=== PATIENT | female | born 1945 | race Caucasian/White ===

== ENCOUNTER 2025-09-04 09:56 | Emergency (ER) | payer OTHER, SELFPAY ==
--- NOTE | ~2025-09-04 | CT_ITS ---
CT HEAD NON-CONTRAST Clinical History: fall, [place] Comparison: None Technique: Unenhanced axial images skull base to vertex Coronal, sagittal reformats CT images acquired with automatic exposure control for dose reduction DLP: 605 mGy-cm Findings: Mild white matter changes, typically chronic microvascular ischemic disease. Sulci, ventricles: Unremarkable. No intracerebral hemorrhage. No evidence acute territorial infarct. No mass effect, midline shift. Bony calvarium intact. Visualized paranasal sinuses: Clear. Mastoid air cells: Clear. IMPRESSION: 1. No acute intracranial findings. Reviewed, dictated and finalized at location R. ING AND MOVING ESTIMATOR
--- NOTE | ~2025-09-04 | CT_ITS ---
EXAMINATION: CT facial & cervical spine wo DATE: 09/04/2025 11:33 INDICATION: Head injury. TECHNIQUE: Computed tomography (CT) of the maxillofacial region and cervical spine was performed without intravenous contrast. Automated exposure control and iterative reconstruction technique were employed. The dose-length product was 605.33 mGy-cm. COMPARISON: None FINDINGS: MAXILLOFACIAL CT: There are fractures of the nasal bones and nasal septum. There is leftward deviation of the nasal septum. There is mild mucosal thickening in the paranasal sinuses. CERVICAL SPINE CT: There is scarring at the lung apices. There is 2 mm anterolisthesis of C7 on T1. There is 6 degrees levocurvature of cervical spine. Vertebral body heights are normal. There is moderately decreased disc height at C4-C5 and severely decreased disc height at C5-C6 and C6-C7. There is multilevel severe facet joint and uncovertebral joint osteoarthritis. There is mild neural foraminal stenosis at multiple levels on either side. There is mild central canal stenosis at C5-C6 and C6-C7. IMPRESSION: 1. Fractures of the nasal bones and nasal septum. 2. Severe cervical spondylosis. Reviewed, dictated and finalized at location E. E SALES MANAGER
[2025-09-04 09:58] VITALS: BP 160/57; PULSE 70; RESP 20; TEMP 36.3; O2SAT 99
[2025-09-04 11:08] VITALS: BP 153/71; PULSE 70; RESP 20; O2SAT 100
--- NOTE | 2025-09-04 12:04 | ED.FALL ---
HPI - Fall General Chief Complaint: Fall Stated Complaint: FALL Time Seen by Provider: 09/04/25 10:55 Source: patient Mode of arrival: ambulatory Limitations: no limitations History of Present Illness HPI Narrative: Patient is an 80 y/o female who presents to the ED with c/o fall. Patient reports she was walking through her house and tripped and fell. Hit her head on the ground. Denied LOC. Was wearing her eyeglasses and sustained abrasion to the bridge of her nose. Did have a nosebleed afterwards which has since resolved. Denies dizziness, lightheadedness, vision changes, nausea, neck or back pain. Denies numbness. She is not on any anticoagulation. Related Data Allergies Allergy/AdvReac Type Severity Reaction Status Date / Time No Known Allergies Allergy Verified 09/04/25 11:10 Review of Systems Review of Systems: All systems reviewed & are unremarkable except as noted in HPI. All systems reviewed & are unremarkable except as noted in HPI and below Exam Narrative: GENERAL: Elderly, well-nourished, non-toxic, in no acute distress. HEAD: Normocephalic, atraumatic. EYES: PERRL/EOMI, conjunctiva clear ENT: Abrasion over bridge of nose. Some bruising to nares duane. Dried blood in nares. No active epistaxis. No septal hematoma. RESPIRATORY: Airway patent, respirations nonlabored. Clear to auscultation bilaterally, no rales, rhonchi, wheezing. CARDIOVASCULAR: Regular rate and rhythm without murmurs, rubs, or gallops. ABDOMINAL: Soft, nontender, nondistended. Normoactive BS. MUSCULOSKELETAL: Moves all extremities. No gross deformities. No significant C/T/L spinal tenderness. SKIN: Warm, dry, normal color. NEURO: A&O X3. Speech clear. Cranial nerves II-XII grossly intact. Steady gait. No ataxic movements. No focal deficits. PSYCHIATRIC: Appropriate mood and affect. Normal interaction. Course Vital Signs Vital signs: Vital Signs Temperature 97.3 F L 09/04/25 09:58 Pulse Rate 70 09/04/25 09:58 Respiratory Rate 20 09/04/25 09:58 Blood Pressure 160/57 H 09/04/25 09:58 Pulse Oximetry 99 09/04/25 09:58 Oxygen Delivery Room Air 09/04/25 09:58 Temperature 97.3 F L 12/29/25 09:58 Pulse Rate 73 09/04/25 12:41 Respiratory Rate 18 09/04/25 12:41 Blood Pressure 159/83 H 09/04/25 12:41 Pulse Oximetry 100 09/04/25 12:41 Oxygen Delivery Room Air 09/04/25 11:08 [facility] Narrative Medical decision making narrative: Patient presented to ED status post ground level mechanical fall with facial injury. Vital signs stable upon arrival. Patient in no acute distress. Neurologically intact. No focal deficits. She is not on any anticoagulation. No septal hematoma. Small abrasion over bridge of nose. Does not require repair. CT brain negative CT facial bones with evidence of nasal bone fracture and fracture of nasal septum. No cervical fracture Discussed imaging findings with patient and need for follow-up with ENT. Will refer to ENT here. Advised against blowing nose, recommended frequent icing to face. Offered pain medication for home, however patient politely declined. Advised to take Tylenol. Otherwise safe for discharge home. Given strict return precautions. Patient and family are in agreement with plan. Family otherwise states patient has been at her baseline. Discharged in stable condition. Differential Diagnosis Differential Diagnosis: Concussion, closed head injury, intracranial bleeding, neck fracture, facial bone fracture Medical Records I have reviewed the following patient records and this information was taken into consideration when formulating the assessment and plan.: previous labs, previous ER visits, previous hospitalizations and previous clinic visits Imaging Data Attestation: I personally reviewed and interpreted this imaging study as follows: Radiologist's impression: ITS Impressions Head CT 09/04/25 11:39 IMPRESSION: 1. No acute intracranial findings. Head/Cervical Spine/Facial Bones CT 09/04/25 11:42 IMPRESSION: 1. Fractures of the nasal bones and nasal septum. 2. Severe cervical spondylosis. Discharge Plan Discharge Clinical Impression: Fall from ground level Closed head injury Qualifiers: Encounter type: initial encounter Qualified Code(s): S09.90XA - Unspecified injury of head, initial encounter Fracture of nasal bones Qualifiers: Encounter type: initial encounter Fracture type: closed Qualified Code(s): S02.2XXA - Fracture of nasal bones, initial encounter for closed fracture Patient Disposition: Home Condition: Stable Instructions: Antibiotic Form, Nasal Fracture (ED), Head Injury (ED) Additional Instructions: Your imaging showed evidence of fracture to your nasal bones. Avoid blowing your nose over the next several days. You will need to follow-up with ENT for further evaluation. Call office to make appointment. Recommend frequent icing to face and nose. Use Tylenol as needed for pain. Return to the ED if you experience recurrent fall or injury, severe nosebleeds, feeling dizzy or lightheaded, passing out, unable to keep down food or drink, or any other symptoms of concern. Patient Language: Moldovan Follow-up/Referrals: Pierre Bradford MD [Physician, Ear, Nose, Throat] Referral Note: ENT PHYSICIAN NOT ON STAFF,NONSTAFF [Primary Care Provider] Time of Disposition: 12:08
--- OUTSIDE RECORDS SUMMARY | 2025-09-04 12:20 | XMS_ITS | Encounter Summary ---
Author Organization [facility] Address [address] [place] [address] Care Team Providers Care Matzo Forming Machine Operator Name Role Phone Akiko Mendoza MD Primary Care Provider [phone] Reason for Visit * Reason Onset Date Comments Results 06/18/2020 Encounter Details Date Type Department Care Team (Late st Contact Info) Description 06/18/2020 Transitional Care Telephone Call [facility] [place] [address] [address] [facility] [address] [place] [address] Melony Shepherd MD [address] [place] [address] Social History Tobacco Use Types Packs/Day Years Used Date Smoking Tobacco: Never Smokeless Tobacco: Never Alcohol Use Standard Drinks/Week Comments Yes 0 (1 standard drink = 0.6 oz pur e alcohol) 1 per week PHQ-2 Answer Date Recorded PHQ-2 Total Score 0 04/19/2020 Comments No Sex and Gender Information Value Date Recorded Sex Assigned at Female 06/22/2023 9:34 AM EDT Legal Sex Female 1:01 PM EDT Gender Identity Female 06/22/2023 9:34 AM EDT Sexual Orientation Straight 06/22/2023 9: 34 AM EDT documented as of this encounter Plan of Treatment Not on file documented as of this encounter Visit Diagnoses Not on filedocumented in this encounter Care Teams Matzo Forming Machine Operator Relationship Specialty Start Date End Date Akiko Mendoza MD [address] [place] [address] [place], [place] [id number] PCP - General Internal Medicine 06/24/18 documented as of this encounter
--- OUTSIDE RECORDS SUMMARY | 2025-09-04 12:20 | XMS_ITS | Clinical Summary ---
Author Organization [employer] [facility] Address [address] [place] [address] Phone Care Team Providers Care Electromechanical Inspector Name Role Phone Akiko Mendoza MD Primary Care Provider [phone] Allergies Active Allergy Reactions Criticality Noted Date Comments Propofol Unknown 12/25/2021 Thiopental Unknown 01/14/2021 Medications DULoxetine (Cymbalta) [address] capsule Take 1 capsule (60 mg total) by mouth 1 (one) time each day. 1 Active potassium chloride (Klor-Con) 20 mEq ER tablet Take 1 tablet (20 mEq total) by mouth 1 (one) time each day. 1 Active magnesium gluconate (Magonate) 27.5 mg magne- sium (500 mg) tablet Take 1 tablet (27.5 mg total) by mouth 1 (one) time each day. Active docusate sodium (Colace) 100 mg capsule Take 1 capsule (100 mg total) by mouth 1 (one) time each day. Active cholecalcifero l (Vitamin D-3) 25 mcg (1,000 unit) capsule Take by mouth 1 (one) time each day. Active nadoloL (Corgard) 20 mg tablet TAKE ONE TABLET BY MOUTH TWO TIMES A WEEK 24 tablet 1 5 Active ezetimibe (Zetia) 10 mg tablet TAKE 1 TABLET BY MOUTH DAILY 90 tablet 5 Active olmesartan-hyd rochlorothiazi de (BENIcar HCT) 40-12.5 mg tablet TAKE 1 TABLET BY MOUTH EVERY DAY 90 tablet 5 Active olmesartan-hyd rochlorothiazi de (BENIcar HCT) 40-12.5 mg tablet TAKE 1 TABLET BY MOUTH 1 (ONE) TIME EACH DAY. 90 tablet 5 08/22/20 25 Discontinued Active Problems Problem Noted Date Diagnosed Date Abnormal EKG 05/23/2021 Anxiety and depression 05/23/2021 Shortness of breath 05/23/2021 Hyperlipidemia 01/14/2016 Fatigue 11/12/2015 COPD (chronic obstructive pulmonary disease) Hypertension 11/05/2015 Encounters Date Type Department Care Team Description 08/21/2025 Refill [facility] [address] [facility], [address] [address] Lang Odonnell MD Med Refill 07/21/2025 Refill [facility] [address] [facility], [address] [address] Lang Odonnell MD Med Refill 07/12/2025 Refill [facility] [address] [facility], [address] [phone] Lang Odonnell MD Med Refill from Last 3 Months Immunizations Immunization Administration Dates Next Due Influenza (IM) Preservative Free 05/30/2020 Moderna Covid-19, Mrna, Lnp- s, Pf, 100 Mcg/0.5 Ml 08/26/2021,01/17/2021,12/04/2020 Social History Tobacco Use Types Packs/Day Years Used Date Smoking Tobacco: Never Smokeless Tobacco: Never Tobacco Cessation:Counseling Given: Not Answered Alcohol Use Standard Drinks/Week Comments Yes 0 (1 standard drink = 0.6 oz pur e alcohol) occasionally E-cigarette/Vaping Answer Date Recorded Smoking Tobacco Use Never 01/16/2025 Smokeless Tobacco Use Never 01/16/2025 Comments Unknown Sex and Gender Information Value Date Recorded Sex Assigned at Female 04/12/2021 8:59 AM EDT Legal Sex Female 12:50 AM EST Gender Identity Female 04/12/2021 8:58 AM EDT Sexual Orientation Straight 11/27/2022 8: 48 AM EDT Last Filed Vital Signs Vital Sign Reading Time Taken Comments Blood Pressure 120/84 01/16/2025 1:13 PM EDT Pulse 68 01/16/2025 1:13 PM EDT Temperature - - Respiratory Rate - - Oxygen Saturation 96% 12/09/2023 11:34 AM EDT Inhaled Oxygen Concentration - - Weight 72.1 kg (159 lb) 01/16/2025 1:13 PM EDT Height 170.2 cm (5' 7) 01/16/2025 1:13 PM EDT Body Mass Index 24.9 01/16/2025 1:13 PM EDT Plan of Treatment Health Maintenance Due Date Last Done Comments Glaucoma Screening 67+ Yr 1945 Medicare Advantage Annual Wellness Visit 1945 DTaP,Tdap,and Td Vaccines (1 - Tdap) 1963 Zoster Vaccines (1 of 2) 1995 COVID-19 Vaccine (4 - season) 2025 08/26/2021, 01/17/2021, 12/04/2020 Influenza Vaccine (#1) 2025 4, 06/22/2023, 05/30/2020, Additional history exists Diabetes: Hemoglobin A1C 10/05/2025 025, 10/05/2024, 04/04/2024, Additional history exists Pneumococcal Vaccine: 50+ Years Completed 05/28/2015 Pneumococcal Vaccine: Pediatrics (0 to 5 years) and at-risk patients (6 to 64 years) Discontinued 05/28/2015 Colorectal Cancer Screening Discontinued FOBT Discontinued 12/16/2016 Osteoporosis Screening Discontinued 4, 10/21/2023, 06/29/2020, Additional history exists Medicare Annual Wellness Visit Discontinued 10/05/2024, 09/28/2023, 10/01/2022, Additional history exists CT Colonography Discontinued Cologuard Discontinued Colonoscopy Discontinued FIT Discontinued HIB Vaccines Aged Out No longer eligi ble based on patient's age to complete this topic HPV Vaccines (No Doses Required) Completed Hepatitis A Vaccines Aged Out No long er eligible based on patient's age to complete this topic Hepatitis B Vaccines Aged Out No long er eligible based on patient's age to complete this topic IPV Vaccines Aged Out No longer eligi ble based on patient's age to complete this topic Meningococcal Vaccine Aged Out No scott elroy eligible based on patient's age to complete this topic [facility] Meningococcal B Vaccine Aged Out No longer eligible based on patient's age to complete this topic Rotavirus Vaccines Aged Out No longer eligible based on patient's age to complete this topic Sigmoidoscopy Discontinued Procedures Procedure Name Priority Date/Time Associated Diagnosis Comments DEXA BONE DENSITY Routine 06/27/2020 11: 43 AM EDT from Last 3 Months or Most Recently Relevant to Health Maintenance Results * DEXA Bone Density (06/27/2020 11:43 AM EDT) Anatomical Region Laterality Modality Wrist, Hip, L-spine Radiographic Imaging 06/27/2020 11:4 3 AM EDT Narrative 06/28/2020 3:50 PM EDT MA Bone Density Dexa CLINICAL INDICATION: Evaluate bone density. Patient is postmenopausal. TECHNIQUE: Bone mineral densitometry was performed using the [employer] System. FINDINGS: L1 -- L4: 0.947 g/cm^2 T = -2.0 Z = -0.2 Left Femoral Neck: 0.829 g/cm^2 T = -1.5 Z = 0.5 Left Femoral Total: 0.787 g/cm^2 T = -1.8 Z = 0.0 FRAX for major osteoporotic fracture measures 10.1% FRAX for hip fracture measures 2.1% IMPRESSION: WHO classification is low bone mass (osteopenia), lowest T-score is -2.0 in the lumbar spine. Baseline study at this institution. *Bone density status of postmenopausal women and men 50 years and over uses WHO criteria (T-score). Bone density status of premenopausal women and men less than 50 years of age is based on the Z-score (comparison with age-matched controls) and clinical risk factors.*Bone density status of postmenopausal women and men 50 years and over uses WHO criteria (T-score). Bone density status of premenopausal women and men less than 50 years of age is based on the Z-score (comparison with age-matched controls) and clinical risk factors. Dictated by: PETTY MAYA MD Dictated on: 06/28/2020 15:45 Finalized by: PETTY MAYA MD Finalized on: 06/28/2020 15:50 Procedure Note Petty Maya - 01/25/2021 MA Bone Density Dexa CLINICAL INDICATION: Evaluate bone density. Patient is postmenopausal. TECHNIQUE: Bone mineral densitometry was performed using the [employer] System. FINDINGS: L1 -- L4: 0.947 g/cm^2 T = -2.0 Z =-0.2 Left Femoral Neck: 0.829 g/cm^2 T = -1.5 Z = 0.5 Left Femoral Total: 0.787 g/cm^2 T = -1.8 Z =0.0 FRAX for major osteoporotic fracture measures 10.1% FRAX for hip fracture measures 2.1% IMPRESSION: WHO classification is low bone mass (osteopenia), lowest T-score is -2.0in the lumbar spine. Baseline study at this institution. *Bone density status of postmenopausal women and men 50 years and overuses WHO criteria (T-score). Bone density status of premenopausal womenand men less than 50 years of age is based on the Z-score (comparison withage-matched controls) and clinical risk factors.*Bone density status ofpostmenopausal women and men 50 years and over uses WHO criteria(T-score). Bone density status of premenopausal women and men less than50 years of age is based on the Z-score (comparison with age-matchedcontrols) and clinical risk factors. Dictated by: PETTY MAYA MDDictated on: 06/28/2020 15:45Finalized by: PETTY MAYA MDFinalized on: 06/28/2020 15:50 us Provider Conversion IMG DXA PROCEDURES Final Res ult from Last 3 Months or Most Recently Relevant to Health Maintenance Insurance [employer] MEDICARE Care Teams Electromechanical Inspector Relationship Specialty Start Date End Date Akiko Mendoza MD [address] [place] [address] PCP - General Family Medicine 04/12/21
--- OUTSIDE RECORDS SUMMARY | 2025-09-04 12:20 | XMS_ITS | Encounter Summary ---
Author Organization [facility] Address [address] [place] [address] Care Team Providers Care Physical Science Aide Name Role Phone Akiko Mendoza MD Primary Care Provider [phone] Encounter Details Date Type Department Care Team (Latest Contact Info) Description 05/30/2020 Transcribe Orders [facility] [address] [place] [address] Akiko Mendoza MD [address] [place] [address] [phone] Abnormal mammogram (Primary Dx) [R92.8] Social History Tobacco Use Types Packs/Day Years [...] on file documented as of this encounter Results * Creatinine, serum (05/30/2020 10:53 AM EDT) Creatinine 0.65 0.50 - 1.00 mg/dL 05/30/2020 4:01 PM EDT [facility] Blood Venipuncture / Unknown 05/30/2020 10:53 AM EDT 05/30/2020 3:20 PM EDT Comment:Add'l Desc: Akiko Mendoza MD LAB BLOOD ORDERABLES Final Res ult Performing Organization Address [facility] Co de Phone Number [address] [address], [facility] [address] [place] [phone] * BUN (05/30/2020 10:53 AM EDT) BUN 14 7 - 18 mg/dL 05/30/2020 4:01 PM EDT [facility] Blood Venipuncture / Unknown 05/30/2020 10:53 AM EDT 05/30/2020 3:20 PM EDT Comment:Add'l Desc: Akiko Mendoza MD LAB BLOOD ORDERABLES Final Res ult Performing Organization Address [facility] de Phone Number [address] [address], [place] [phone] [address] documented in this encounter Visit Diagnoses Diagnosis Abnormal mammogram- Primary Abnormal mammogram, unspecified documented in this encounter Care Teams Physical Science Aide Relationship Specialty Start Date End Date Akiko Mendoza MD [address] [place] [phone] PCP - General Internal Medicine 06/24/18 documented as of this encounter
--- OUTSIDE RECORDS SUMMARY | 2025-09-04 12:20 | XMS_ITS | Encounter Summary ---
Author Organization [facility] Address [address] [place] [address] Care Team Providers Care Sulfide Head Operator Name Role Phone Akiko Mendoza MD Primary Care Provider Reason for Visit * Reason Comments Medication Refill Encounter Details Date Type Department Care Team (Late st Contact Info) Description 09/14/2015 Refill [facility] [address] [place] [phone] Radha Goins MD [address] [place] [address] [phone] HTN (hypertension), benign (Primary Dx) [I10] Social History Tobacco Use Types Packs/Day Years Used Date Smoking Tobacco: Never Assessed Comments Unknown Sex and Gender Information Value Date Recorded Sex Assigned at Female 06/22/2023 9:34 AM EDT Legal Sex Female 1:01 PM EDT Gender Identity Female 06/22/2023 9:34 AM EDT Sexual Orientation Straight 06/22/2023 9: 34 AM EDT documented as of this encounter Plan of Treatment Not on file documented as of this encounter Visit Diagnoses Diagnosis HTN (hypertension), benign- Primary Essential hypertension, benign documented in this encounter Care Teams Sulfide Head Operator Relationship Specialty Start Date End Date Akiko Mendoza MD [address] [place] [phone] PCP - General Internal Medicine 06/24/18 documented as of this encounter
--- OUTSIDE RECORDS SUMMARY | 2025-09-04 12:20 | XMS_ITS | Encounter Summary ---
Author Organization [facility] Address [address] [place] [address] Care Team Providers Care Credit Collection Associate Name Role Phone Akiko Mendoza MD Primary Care Provider Reason for Visit * Reason Comments Medication Refill Encounter Details Date Type Department Care Team (Late st Contact Info) Description 01/31/2021 Refill [facility] [address] [place] [phone] Akiko Mendoza MD [address] [place] [phone] Social History Tobacco Use Types Packs/Day Years [...] on filedocumented in this encounter Care Teams Credit Collection Associate Relationship Specialty Start Date End Date Akiko Mendoza MD [address] [place] [address] [phone] PCP - General Internal Medicine 06/24/18 documented as of this encounter
--- OUTSIDE RECORDS SUMMARY | 2025-09-04 12:20 | XMS_ITS | Encounter Summary ---
Author Organization [facility] Address [address] [place] [address] Care Team Providers Care Proration Clerk Name Role Phone Akiko Mendoza MD Primary Care Provider Reason for Visit * Reason Comments Medication Refill Encounter Details Date Type Department Care Team (Late st Contact Info) Description 01/15/2021 Refill [facility] [address] [place] [address] [phone] Akiko Mendoza MD [address] [place] [phone] Anxiety [F41.9] Social History Tobacco Use Types Packs/Day Years [...] as of this encounter Visit Diagnoses Diagnosis Anxiety Anxiety state, unspecified documented in this encounter Care Teams Proration Clerk Relationship Specialty Start Date End Date Akiko Mendoza MD [address] [place] [address] [phone] PCP - General Internal Medicine 06/24/18 documented as of this encounter
--- OUTSIDE RECORDS SUMMARY | 2025-09-04 12:20 | XMS_ITS | Encounter Summary ---
Author Organization [facility] Address [address] [place] [address] Care Team Providers Care Maxillofacial Surgeon Name Role Phone Akiko Mendoza MD Primary Care Provider [phone] Reason for Visit * Reason Comments Medication Refill Encounter Details Date Type Department Care Team (Late st Contact Info) Description 07/22/2025 Refill [facility] [address] [place], [place] [phone] Akiko Mendoza MD [address] [facility] [address] [place], [place] [phone] Right ankle swelling [M25.811] Social History Tobacco Use Types Packs/Day Years Used Date Smoking Tobacco: Never Smokeless Tobacco: Never Alcohol Use Standard Drinks/Week Comments Yes 0 (1 standard drink = 0.6 oz pur e alcohol) 1 per week Humiliation, Afraid, Rape, and Kick questionnair e Answer Date Recorded Within the last year, have y ou been afraid of your partner or ex-partner? No 06/22/2023 Emotionally Abused Not on file 06/22/2023 Physically Abused Not on file 06/22/2023 Sexually Abused Not on file 06/22/2023 Social Connection and Isolation Panel Answer Date Recorded In a typical week, how many times do you talk on the phone with family, friends, or neighbors? More than three times a week 06/22/2023 Frequency of Social Gatherin gs with Friends and Family Not on file 06/22/2023 Attends Yazdanism Services Not on file 06/22 Active Member of Clubs or Organizations Not on f ile 06/22/2023 Attends Club or Organization Meetings Not on sandi e 06/22/2023 Marital Status Not on file 06/22/2023 Overall Financial Resource Strain (CARDIA) Answe r Date Recorded How hard is it for you to pa y for the very basics like food, housing, medical care, and heating? Not hard at all 06/22/2023 PHQ-2 Answer Date Recorded PHQ-2 Total Score 0 10/05/2024 Hunger Vital Sign Answer Date Recorded Within the past 12 months, y ou worried that your food would run out before you got the money to buy more. Never true 06/22/20 23 Ran Out of Food in the Last Year Not on file 06/22/2023 PRAPARE - Transportation Answer Date Re corded In the past 12 months, has l ack of transportation kept you from medical appointments or from getting medications? No 06/22/2023 Lack of Transportation (Non-Medical) Not on file 06/22/2023 Housing Stability Vital Sign Answer Richard e Recorded In the last 12 months, was t here a time when you were not able to pay the mortgage or rent on time? No 06/22/2023 Number of Places Lived in the Last Year Not on f ile 06/22/2023 Unstable Housing in the Last Year Not on file 06/22/2023 Comments No Sex and Gender Information Value Date Recorded Sex Assigned at Female 06/22/2023 9:34 AM EDT Legal Sex Female 1:01 PM EDT Gender Identity Female 06/22/2023 9:34 AM EDT Sexual Orientation Straight 06/22/2023 9: 34 AM EDT documented as of this encounter Miscellaneous Notes * Telephone Encounter - Akiko Mendoza MD - 07/24/2025 12:49 PM EST She is out of state documented in this encounter Plan of Treatment Not on file documented as of this encounter Visit Diagnoses Diagnosis Right ankle swelling Effusion of ankle and foot joint documented in this encounter Care Teams Maxillofacial Surgeon Relationship Specialty Start Date End Date Akiko Mendoza MD [address] [place] [address] PCP - General Internal Medicine 06/24/18 documented as of this encounter
--- OUTSIDE RECORDS SUMMARY | 2025-09-04 12:20 | XMS_ITS | Encounter Summary ---
Author Organization [facility] Address [address] [place] [address] Care Team Providers Care Plumbing Manager Name Role Phone Akiko Mendoza MD Primary Care Provider Encounter Details Date Type Department Care Team (Latest Contact Info) Description 01/23/2021 Transcribe Orders [facility] Laboratory Services [address] [place] [address] Akiko Mendoza MD [address] [place], [place] [id number] Tiredness (Primary Dx) [R53.83] Social History Tobacco Use Types Packs/Day Years [...] documented as of this encounter Results * Lupus Anticoagulant Profile (01/23/2021 2:14 PM EDT) Lupus Anticoagulant Tech Interp SEE BELOW 01/25/2021 11:33 AM EDT [facility] Comment: No evidence of a lupus anticoagulant based on results of Prothrombin Time (PT), Activated Partial Thromboplastin Time (APTT), and Dilute Russells Viper Venom Time (DRVVT). Interpretation not reviewed by physician. Prothrombin Time (PT), P 12.2 9.4 - 12.5 sec 01/25/2021 11:33 AM EDT [facility] INR 1.1 0.9 - 1.1 01/25/2021 11:33 AM EDT [facility] Comment: ADDITIONAL INFORMATION Standard intensity warfarin therapeutic range: 2.0 to 3.0 High intensity warfarin therapeutic range: 2.5 to 3.5 aPTT 31 25 - 37 sec 01/25/2021 11:33 AM EDT [facility] DRVVT Screen Ratio 0.88 <1.20 ratio 01/25/2021 11:33 AM EDT [facility] Comment: Test Performed by: [place] [address] Maintenance Electrician: Aubrey Aguilar M.D. Ph.D.; CLIA# [id number] Blood Venipuncture / Unknown 01/23/2021 2:14 PM EDT 01/23/2021 7:23 PM EDT Comment:Add'l Desc: Narrative [facility] - 01/25/2021 11:33 AM EDT Specimen Information: Specimen ID: [id number] Specimen Comment: Add'l Desc: Specimen Collection Start Date: 01/23/2021 2:14 PM Specimen Received Date: 01/23/2021 7:23 PM Specimen ID: [id number] Specimen Comment: Add'l Desc: Specimen Collection Start Date: 01/23/2021 2:14 PM Specimen Received Date: 01/23/2021 7:23 PM Specimen ID: [id number] Specimen Comment: Add'l Desc: Specimen Collection Start Date: 01/23/2021 2:14 PM Specimen Received Date: 01/23/2021 7:23 PM Specimen ID: [id number] Specimen Comment: Add'l Desc: Specimen Collection Start Date: 01/23/2021 2:14 PM Specimen Received Date: 01/23/2021 7:23 PM Specimen ID: [id number] Specimen Comment: Add'l Desc: Specimen Collection Start Date: 01/23/2021 2:14 PM Specimen Received Date: 01/23/2021 7:23 PM Specimen ID: [id number] Specimen Comment: Add'l Desc: Specimen Collection Start Date: 01/23/2021 2:14 PM Specimen Received Date: 01/23/2021 7:23 PM us Akiko Mendoza MD LAB BLOOD ORDERABLES Final Res ult [facility] [address] [place] [address] [place] [address]&[facility]&[place] [address] documented in this encounter Visit Diagnoses Diagnosis Depression, unspecified depression type Fatigue, unspecified type Altered mental status, unspecified altered mental status type Tiredness Other malaise and fatigue Tiredness- Primary Other malaise and fatigue documented in this encounter Care Teams Plumbing Manager Relationship Specialty Start Date End Date Akiko Mendoza MD [address] [place] [id number] PCP - General Internal Medicine 06/24/18 documented as of this encounter
--- OUTSIDE RECORDS SUMMARY | 2025-09-04 12:20 | XMS_ITS | Encounter Summary ---
Author Organization [facility] Address [address] [place] [address] Care Team Providers Care Financing Analyst Name Role Phone Akiko Mendoza MD Primary Care Provider [phone] Reason for Visit * Reason Comments Medication Refill Encounter Details Date Type Department Care Team (Late st Contact Info) Description 07/06/2025 Refill [facility] [address] [place], [place] [phone] Akiko Mendoza MD [address] [place], [place] [phone] Hypokalemia [E87.6] Social History Tobacco Use Types Packs/Day Years [...] and Family Not on file 06/22/2023 Attends [employer] Services Not on file 06/22 Active Member [...] Telephone Encounter - Akiko Mendoza MD - 07/06/2025 9:57 AM EDT As per son patient currently in different state with her daughter documented in this encounter Plan of Treatment Not on file documented as of this encounter Visit Diagnoses Diagnosis Hypokalemia Hypopotassemia documented in this encounter Care Teams Financing Analyst Relationship Specialty Start Date End Date Akiko Mendoza MD [address] [place] [address] PCP - General Internal Medicine 06/24/18 documented as of this encounter
--- OUTSIDE RECORDS SUMMARY | 2025-09-04 12:20 | XMS_ITS | Clinical Summary ---
Author Organization [facility] Address [address] [place] [address] Care Team Providers Care Nursing Secretary Name Role Phone Akiko Mendoza MD Primary Care Provider [phone] Allergies Active Allergy Reactions Criticality Noted Date Comments Propofol 12/25/2021 Other reaction(s): Unknown Thiopental 01/14/2021 Medications magnesium gluconate (MAGONATE) 27.5 mg (500 mg) tablet Take 500 mg by mouth Active nadoloL (CORGARD) 20 mg tabletIndications:Essent ial hypertension Take 1 tablet (20 mg total) by mouth daily 90 tablet 04/15/[address] (CYMBALTA) 60 mg capsule Take 1 capsule (60 mg total) by mouth daily 05/17/20 21 Active cholecalciferol (VITAMIN D3) 2,000 unit capsule Take 1 capsule (2,000 Units total) by mouth daily Active ezetimibe (ZETIA) 10 mg tabletIndications:Pure hypercholesterolemia TAKE 1 TABLET BY MOUTH NIGHTLY 90 tablet 06/24/20 22 Active docusate sodium (COLACE) 100 mg capsule Take 1 capsule (100 mg total) by mouth Active potassium chloride ER (KLOR-CON M20) 20 mEq tabletIndications:Hypoka lemia TAKE 1 TABLET BY MOUTH EVERY DAY 90 tablet 04/06/20 25 Active furosemide (LASIX) 20 mg tabletIndications:Right ankle swelling Take 1 tablet (20 mg total) by mouth daily 30 tablet 06/22/20 25 Active Active Problems Problem Noted Date Diagnosed Date Hospital discharge follow-up 04/24/2025 Weakness of both lower extremities 04/24/2025 Flu vaccine need 05/30/2020 Abnormal mammography 05/20/2020 Cough 06/21/2018 Intractable headache, unspec ified chronicity pattern, unspecified headache type 03/19/2018 Headache disorder 12/26/2016 Hyponatremia 10/20/2016 Vertigo 09/15/2016 Bilateral lumbar radiculopathy 02/11/2016 Right shoulder pain 02/11/2016 Sacrococcygeal pilonidal cyst 01/28/2016 Vitamin D deficiency 01/14/2016 HLD (hyperlipidemia) 01/14/2016 Upper respiratory tract infection, unspecified t ype 11/12/2015 Fatigue 11/12/2015 Annual physical exam 11/05/2015 HTN (hypertension) 11/05/2015 OP (osteoporosis) 11/05/2015 Elevated PTHrP level 11/05/2015 Low back pain 11/05/2015 Anxiety 11/05/2015 Resolved Problems Problem Noted Date Diagnosed Date Resolved Date MDD (major depressive disord er), recurrent, severe, with psychosis 01/16/2021 12/31/2022 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 12/08/2016 COPD (chronic obstructive pulmonary disease) 6 10/24/2021 Encounters Date Type Department Care Team Description 07/22/2025 Refill [facility] [address] [place] [address] Akiko Mendoza MD Right ankle swelling [M25.471] 07/19/2025 Telephone [facility] [address] [place] [address] Akiko Mendoza MD 07/18/2025 Telephone [facility] [address] [place] [address] Akiko Mendoza MD 07/06/2025 Refill [facility] [address] [place] [address] Akiko Mendoza MD Hypokalemia [E87.6] 06/22/2025 Refill [facility] [address] [place] [address] Akiko Mendoza MD Right ankle swelling [M25.471] from Last 3 Months Immunizations Immunization Administration Dates Next Due Flu 2017-18 (5 Yr Up) (PF) Trivalent IM 07/02/20 17 H1N1 Inj 09/13/2009 Influenza (65 Years Up) (PF) Quadrivalent IM (Adjuvanted) 06/22/2023 Influenza (65 Years Up) (PF) Trivalent IM (Adjuv anted) 08/18/2024 Influenza 2018-19 (65 Years Up) (PF) Trivalent IM (High Dose) 06/24/2018 Influenza 2019-20 (4 Years U p) Quadrivalent IM (Cell Derived) 07/01/2019 Influenza 2020-21 (65 Years Up) (PF) Trivalent IM (Adjuvanted) 05/30/2020 Influenza Whole 07/04/2016 Influenza, Unspecified 07/22/2021 Pneumococcal Conjugate 13-Valent 06/02/2016 Pneumococcal, Unspecified 07/14/2013 Family History Medical History Relation Comments Lung cancer Father Pneumonia Mother Relation Status Comments Father Mother Social History Tobacco Use Types Packs/Day Years [...] and Family Not on file 06/22/2023 Attends [employer] Services Not on file 06/22 Active Member [...] Orientation Straight 06/22/2023 9: 34 AM EDT Last Filed Vital Signs Vital Sign Reading Time Taken Comments Blood Pressure 110/62 03/13/2025 1:50 PM EDT Pulse 75 03/13/2025 1:50 PM EDT Temperature 36.7 C (98 F) 03/13/2025 1:50 PM EDT Respiratory Rate 16 02/27/2025 2:54 PM EDT Oxygen Saturation 97% 03/13/2025 1:50 PM EDT Inhaled Oxygen Concentration - - Weight 66.2 kg (146 lb) 03/13/2025 1:50 PM EDT Height 170.2 cm (5' 7.01) 02/27/2025 2:54 PM ED T Body Mass Index 22.86 02/27/2025 2:54 PM EDT Plan of Treatment Health Maintenance Due Date Last Done Comments CARELINK BLOOD PRESSURE 140/ 90 OR UNDER 1963 Hepatitis B Infection Screening 1963 Zoster Vaccines (Shingles) ( 1 of 2) 1995 PNEUMOCOCCAL VACCINE AGE 50+ (2 of 2 - PPSV23, PCV20, or PCV21) 07/28/2016 06/02/2016 CARELINK FALL RISK SCREENING 06/24/2019 06/24/2018, 04/15/2018 RSV Vaccine Needed (1 - 1-do se 75+ series) 2020 COLOGUARD 2021 FIT (Fecal Immunochemical Test) 2021 9, 06/06/2019 FOBT 2021 12/16/2016 SIGMOIDOSCOPY 2021 INFLUENZA VACCINE 04/07/2025 08/18/2024, , 06/22/2023, Additional history exists COVID VACCINE ( season) 2025 08/26/2021, 01/17/2021, 12/04/2020 CARELINK ANNUAL DEPRESSION SCREENING 10/05/2025 10/05/2024 Medicare Annual Wellness Visit 10/05/2025 0 10/05/2024, 09/28/2023, 10/01/2022, Additional history exists OSTEOPOROSIS SCREENING 10/21/2025 , 10/21/2023, 06/29/2020, Additional history exists CARELINK ACCESS TO PREVENTIVE/AMBULATORY VISIT 10/05/2026 10/05/2024, 09/28/2023, 10/01/2022, Additional history exists CARELINK COLON FOBT Discontinued 12/16/2016 HEPATITIS C SCREENING Discontinued 03/31/2019 [facility]INK COLONOSCOPY Discontinued 06/06/2019 COLONOSCOPY Discontinued 06/06/2019, 05/10, 01/23/2014 Colon Cancer Screenings Discontinued BREAST CANCER SCREENING Discontinued 10/21/19, 10/21/2023, 10/21/2023, Additional history exists CARELINK COLONOGRAPHY (CT) Discontinued CARELINK FIT-DNA TEST Discontinued [facility]INK FLEX SIGMOIDOSCOPY Discontinued COLORECTAL CANCER SCREENING Discontinued Cervical Cancer Discontinued Procedures Procedure Name Priority Date/Time Associated Diagnosis Comments BONE DENSITY Routine 10/21/2023 1:58 PM EST Age-related osteoporosis without current pathological fracture MG KATIANA SCREENING DIGITAL BILATERAL Routine 10/21/2023 1:31 PM EST Encounter for screening mammogram for malignant neoplasm of breast HM COLONOSCOPY (COLON CANCER SCREENING) Routine 06/06/2019 OCCULT BLOOD X 3, STOOL Routine 12/16/2016 1:00 PM EDT from Last 3 Months or Most Recently Relevant to Health Maintenance Results * Bone density (10/21/2023 1:58 PM EST) Anatomical Region Laterality Modality Body N/A Other Impressions 10/21/2023 2:13 PM EST Osteopenia of the average L1-L4 lumbar spine. Osteopenia of the left total hip. Osteoporosis of the left forearm radius. Therapeutic decisions based upon isolated low values at this site should be discussed with your clinician. Bilateral hips should be acquired when indicated including falsely elevated BMD of the AP spine caused by fracture, degenerative changes, need to exclude more than 2 spine levels from the analysis, etc. Narrative 10/21/2023 2:13 PM EST INDICATION: Age-related osteoporosis without current pathological fracture [M81.0 (ICD-10-CM)] TECHNIQUE: Dual energy x-ray absorptiometry (DEXA) bone mineral densitometry (BMD) study utilizing screening protocol with the EnWave system. Bone mineral density and T-score values for the distal radius are provided. Lumbar spine measurement may be affected by segmentation. Comparison: None available. Findings: Lumbar spine: The average L1-L4 lumbar spine BMD 1.029 gm/cm2 with T-score -1.3 and Z-score 0.5. Left femoral neck: BMD 0.911 gm/cm2 with T-score -0.9 and Z-score 1.1. Osteopenia of the left total hip with T score -1.6. Left forearm (distal radius): BMD 0.314 gm/cm2 with T-score -3.3 and Z-score - 0.8. Osteoporosis of the radius 33% and total radius with T score -3.4 and -3.8 respectively. FRAX 10 year probability score: Major osteoporotic fracture 10.6%. Hip fracture 1.8%. The World Health Organization defines osteoporosis as a bone mineral density 2.5 standard deviations below a young, normal, sex-matched group (T score less than -2.5). Osteopenia is defined as a bone mineral density that is 1 to 2.5 standard deviations below a young, normal, sex-matched population (T score between -1 and -2.5). Bone measurements should be interpreted within the clinical context and other risk factors for other metabolic bone disease. Resulting Agency Comment [id number] Procedure Note Jh Rosario MD - 10/21/2023 INDICATION: Age-related osteoporosis without current pathological fracture [M81.0(ICD-10-CM)] TECHNIQUE: Dual energy x-ray absorptiometry (DEXA) bone mineraldensitometry (BMD) study utilizing screening protocol with the YuMingle. Bone mineral density and T-score values for the distal radius areprovided. Lumbar spine measurement may be affected by segmentation. Comparison: None available. Findings: Lumbar spine: The average L1-L4 lumbar spine BMD 1.029 gm/cm2 with T-score-1.3 and Z-score 0.5. Left femoral neck: BMD 0.911 gm/cm2 with T-score -0.9 and Z-score 1.1.Osteopenia of the left total hip with T score -1.6. Left forearm (distal radius): BMD 0.314 gm/cm2 with T-score -3.3 andZ-score - 0.8. Osteoporosis of the radius 33% and total radius with T score-3.4 and -3.8 respectively. FRAX 10 year probability score: Major osteoporotic fracture 10.6%. Hipfracture 1.8%. The World Health Organization defines osteoporosis as a bone mineraldensity 2.5 standard deviations below a young, normal, sex-matched group(T score less than - 2.5). Osteopenia is defined as a bone mineral densitythat is 1 to 2.5 standard deviations below a young, normal, sex-matchedpopulation (T score between -1 and -2.5). Bone measurements should be interpreted within the clinical context andother risk factors for other metabolic bone disease. IMPRESSION: Osteopenia of the average L1-L4 lumbar spine. Osteopenia of the left total hip. Osteoporosis of the left forearm radius. Therapeutic decisions based upon isolated low values at this site shouldbe discussed with your clinician. Bilateral hips should be acquired whenindicated including falsely elevated BMD of the AP spine caused byfracture, degenerative changes, need to exclude more than 2 spine levelsfrom the analysis, etc. us Akiko Mendoza MD IMG MAMMOGRAPHY ORDERABLES Fin al Result * MG katiana screening digital bilateral (10/21/2023 1:31 PM EST) Anatomical Region Laterality Modality Breast Bilateral Mammography 10/21/2023 1:32 PM EST Impressions 10/22/2023 9:30 AM EST BENIGN There is no mammographic evidence of malignancy. A 1 year screening mammogram is recommended. BREAST CANCER RISK ASSESSMENT SUMMARY Average Risk Your patient completed a breast cancer risk assessment survey as part of their breast health screening. Based on the information she provided, her calculated risk of developing breast cancer is not increased over the general population risk. Your patient's risk is: Pam Hutson 3.9% lifetime risk. The patient was notified of the results. The patient was notified of the results and their current breast density. There are four categories of breast density on mammography. Fatty breast and those with scattered fibroglandular tissue are not considered dense. Heterogenously dense and extremely dense is considered dense. Please understand that assessment of breast density may vary year to year. As per the [place] Breast Density Law, regardless of your patient's specific breast density, an informational statement was sent to your patient in a lay letter that states: Your mammogram may show that you have dense breast tissue as determined by the Breast Imaging and Reporting and Data System established by the [employer]. Dense breast tissue is very common and is not abnormal. However, in some cases, dense breast tissue can make it harder to find cancer on a mammogram and may also be associated with a risk factor for breast cancer. Discuss this and other risks for breast cancer that pertain to your personal medical history with your health care provider. A report of your results was sent to your health care provider. You may also find more information about breast density at the web site of the [employer], www.acr.org. Socorro [email or web address]:10/22/2023 09:30:38 letter sent: BR 1-2 Normal Mammogram BI-RADS: 2 Benign Narrative 10/22/2023 9:30 AM EST #[id number] - MG KATIANA SCREENING DIGITAL BILATERAL BILATERAL DIGITAL SCREENING MAMMOGRAM 3D/2D WITH CAD: 10/21/2023 Digital breast tomosynthesis was performed and used in the interpretation of images. Current study was also evaluated with a Computer Aided Detection (CAD) system 7.2H or 2.1. No prior exams were available for comparison. The breasts are heterogeneously dense, which may obscure small masses. There are benign post operative findings in the left breast. No significant masses, calcifications, or other findings are seen in either breast. Procedure Note Socorro Larose MD - 10/22/2023 #[id number] - MG KATIANA SCREENING DIGITAL BILATERAL BILATERAL DIGITAL SCREENING MAMMOGRAM 3D/2D WITH CAD: 10/21/2023 Digital breast tomosynthesis was performed and used in the interpretationof images. Current study was also evaluated with a Computer Aided Detection (CAD)system 7.2H or 2.1. No prior exams were available for comparison. The breasts are heterogeneously dense, which may obscure small masses. There are benign post operative findings in the left breast. No significant masses, calcifications, or other findings are seen ineither breast. IMPRESSION: BENIGN There is no mammographic evidence of malignancy. A 1 year screeningmammogram is recommended. BREAST CANCER RISK ASSESSMENT SUMMARY Average Risk Your patient completed a breast cancer risk assessment survey as part oftheir breast health screening. Based on the information she provided, hercalculated risk of developing breast cancer is not increased over thegeneral population risk. Your patient's risk is: Pam Hutson 3.9% lifetime risk. The patient was notified of the results. The patient was notified of the results and their current breast density.There are four categories of breast density on mammography. Fatty breastand those with scattered fibroglandular tissue are not considered dense.Heterogenously dense and extremely dense is considered dense. Pleaseunderstand that assessment of breast density may vary year to year. As per the [place] Breast Density Law, regardless of your patient'sspecific breast density, an informational statement was sent to yourpatient in a lay letter that states: Your mammogram may show that youhave dense breast tissue as determined by the Breast Imaging and Reportingand Data System established by the [employer]. Densebreast tissue is very common and is not abnormal. However, in some cases,dense breast tissue can make it harder to find cancer on a mammogram andmay also be associated with a risk factor for breast cancer. Discuss thisand other risks for breast cancer that pertain to your personal medicalhistory with your health care provider. A report of your results was sentto your health care provider. You may also find more information aboutbreast density at the web site of the [employer],www.acr.org. Socorro [email or web address]:10/22/2023 09:30:38 letter sent: BR 1-2 Normal Mammogram BI-RADS: 2 Benign us Akiko Mendoza MD IMG MAMMOGRAPHY ORDERABLES Fin al Result * HM COLONOSCOPY (COLON CANCER SCREENING) (06/06/2019) us Akiko Mendoza MD HEALTH MAINTENANCE Final Resul t EXTERNAL LAB * Occult blood x 3, stool (12/16/2016 1:00 PM EDT) Occult Blood, Stool NEGATIVE 12/18/2016 4:40 PM EDT [facility] Occult Blood, Stool NEGATIVE 12/18/2016 4:40 PM EDT [facility] Occult Blood, Stool NEGATIVE 12/18/2016 4:40 PM EDT [facility] 12/16/2016 1:00 PM EDT 12/16/2016 7:49 PM EDT us Radha Goins MD BODY FLUIDS AND STOOLS ORDERABL ES Final Result [facility] from Last 3 Months or Most Recently Relevant to Health Maintenance Insurance AETNA MEDICARE AETNA MEDICARE Advance Directives Documents on File Type Date Recorded Patient Psychiatric Registered Nurse Expl anation POLST Form 09/27/2018 2:03 PM BIM POLST 09/27/18 Care Teams Nursing Secretary Relationship Specialty Start Date End Date Akiko Mendoza MD [address] [place] [id number] PCP - General Internal Medicine 06/24/18
--- OUTSIDE RECORDS SUMMARY | 2025-09-04 12:21 | XMS_ITS | Encounter Summary ---
Author Organization [facility] Address [address] [place] [address] Care Team Providers Care Livestock Agent Name Role Phone Akiko Mendoza MD Primary Care Provider [phone] Reason for Visit * Reason Comments Medication Refill Encounter Details Date Type Department Care Team (Late st Contact Info) Description 01/01/2023 Refill [facility] [address] [place], [place] [phone] Akiko Mendoza MD [address] [place], [place] [phone] Hyponatremia [E87.1] Social History Tobacco Use Types Packs/Day Years Used Date Smoking Tobacco: Never Smokeless Tobacco: Never Alcohol Use Standard Drinks/Week Comments Yes 0 (1 standard drink = 0.6 oz pur e alcohol) 1 per week Humiliation, Afraid, Rape, and Kick questionnair e Answer Date Recorded Within the last year, have y ou been afraid of your partner or ex-partner? No 05/02/2022 Emotionally Abused Not on file 05/02/2022 Physically Abused Not on file 05/02/2022 Sexually Abused Not on file 05/02/2022 Social Connection and Isolation Panel Answer Date Recorded In a typical week, how many times do you talk on the phone with family, friends, or neighbors? Three times a week 05/02/2022 Frequency of Social Gatherin gs with Friends and Family Not on file 05/02/2022 Attends Adventism Services Not on file 05/02 Active Member of Clubs or Organizations Not on f ile 05/02/2022 Attends Club or Organization Meetings Not on sandi e 05/02/2022 Marital Status Not on file 05/02/2022 Overall Financial Resource Strain (CARDIA) Answe r Date Recorded How hard is it for you to pa y for the very basics like food, housing, medical care, and heating? Not hard at all 05/02/2022 PHQ-2 Answer Date Recorded PHQ-2 Total Score 0 10/01/2022 Hunger Vital Sign Answer Date Recorded Within the past 12 months, y ou worried that your food would run out before you got the money to buy more. Never true 05/02/20 22 Ran Out of Food in the Last Year Not on file 05/02/2022 PRAPARE - Transportation Answer Date Re corded In the past 12 months, has l ack of transportation kept you from medical appointments or from getting medications? No 05/02/2022 Lack of Transportation (Non-Medical) Not on file 05/02/2022 Housing Stability Vital Sign Answer Richard e Recorded In the last 12 months, was t here a time when you were not able to pay the mortgage or rent on time? No 05/02/2022 Number of Places Lived in the Last Year Not on f ile 05/02/2022 Unstable Housing in the Last Year Not on file 05/02/2022 Comments No Sex and Gender Information Value Date Recorded Sex Assigned at Female 06/22/2023 9:34 AM EDT Legal Sex Female 1:01 PM EDT Gender Identity Female 06/22/2023 9:34 AM EDT Sexual Orientation Straight 06/22/2023 9: 34 AM EDT documented as of this encounter Plan of Treatment Not on file documented as of this encounter Visit Diagnoses Diagnosis Hyponatremia Hyposmolality and/or hyponatremia documented in this encounter Care Teams Livestock Agent Relationship Specialty Start Date End Date Akiko Mendoza MD [address] [place] [address] PCP - General Internal Medicine 06/24/18 documented as of this encounter
--- OUTSIDE RECORDS SUMMARY | 2025-09-04 12:21 | XMS_ITS | Patient Health Record ---
[facility] Organization [facility] Address [address] [facility] [address] [place] [address] Care Team Providers Care Multimedia Developer Name Role Phone Buster MACKEY, Aster Primary Care Provider Jh Woo Unavailable [phone] Lolita Tabor Unavailable Unavailable Reason For Referral No Information Medications Medication SIG (Take, Route, Frequency, Duration) Notes Start Date End Date Status Arnuity Ellipta Acti ve Stool Softener Activ e Flaxseed Oil Active Butalbital-APAP Acti ve Nadolol Active Calcium Active B Complex Active Polyethylene Glycol 3350 Active Multivitamin Active Vitamin D Active Voltaren PRN Active Lorazepam Active Zolpidem Tartrate Ac tive Quinapril-hydroCHLOROthiazi de Active Immunizations Vaccine Route Administration Date Status Comme nts FLUZONE HIGH DOSE (65 & up) Unknown 05/28/2015 Administ ered Pneumovax Unknown 05/28/2015 Administered Social History Tobacco Use: Social History Observation Description Date Details (start date - stop date) Never Smoker NA - NA Social History Drugs/Alcohol: Social Info Question Answer Notes Alcohol Screen Did you have a drink containing alcohol in the past year? Yes How often did you have a drink containing alcohol in the past year? 2 to 4 times a month (2 points) How many drinks did you have on a typical day when you were drinking in the past year? 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 [address] [place] [address] [id number] Homa Cortes Self - patient is the insured 8 Medical (General) History Medical History History ICD Code LEE lung disease s/p tx in 2009 Bronchiectasis HTN Hypercholesterolemia IBS/constipation Tension BABB Second hand smoke exposure Nephrolithiasis(2002) Anxiety Diverticulosis Surgical History Surgery Date(Month/Year) parathyroidectomy 2005 breast bx 1997 tubal ligation 1972 Hospitalization History Reason Date(Month/Year) As noted in surgical hx
--- OUTSIDE RECORDS SUMMARY | 2025-09-04 12:21 | XMS_ITS | Encounter Summary ---
Author Organization [facility] Address [address] [place] [address] Care Team Providers Care Regional Guide Name Role Phone Akiko Mendoza MD Primary Care Provider [phone] Reason for Visit * Reason Comments Medication Refill Encounter Details Date Type Department Care Team (Late st Contact Info) Description 08/18/2021 Refill [facility] [address] [place] [phone] Akiko Mendoza MD [address] [place] [address] [phone] Social History Tobacco Use Types Packs/Day Years Used Date Smoking Tobacco: Never Smokeless Tobacco: Never Alcohol Use Standard Drinks/Week Comments Yes 0 (1 standard drink = 0.6 oz pur e alcohol) 1 per week PHQ-2 Answer Date Recorded PHQ-2 Total Score 0 07/22/2021 Comments No Sex and Gender Information Value [...] on filedocumented in this encounter Care Teams Regional Guide Relationship Specialty Start Date End Date Akiko Mendoza MD [address] [place] [phone] PCP - General Internal Medicine 06/24/18 documented as of this encounter
--- OUTSIDE RECORDS SUMMARY | 2025-09-04 12:21 | XMS_ITS | Encounter Summary ---
Author Organization [facility] Address [address] [place] [address] Care Team Providers Care Tour Escort Name Role Phone Akiko Mendoza MD Primary Care Provider Reason for Visit * Reason Comments Medication Refill Encounter Details Date Type Department Care Team (Late st Contact Info) Description 01/10/2019 Refill [facility] [address] [place] [address] [phone] Akiko Mendoza MD [address] [place] [address] [phone] Headache disorder [R51] Social History Tobacco Use Types Packs/Day Years Used Date Smoking Tobacco: Never Smokeless Tobacco: Never Alcohol Use Standard Drinks/Week Comments Yes 0 (1 standard drink = 0.6 oz pur e alcohol) 1 per week Comments No Sex and Gender Information Value Date Recorded Sex Assigned at Female 06/22/2023 9:34 AM EDT Legal Sex Female 1:01 PM EDT Gender Identity Female 06/22/2023 9:34 AM EDT Sexual Orientation Straight 06/22/2023 9: 34 AM EDT documented as of this encounter Plan of Treatment Not on file documented as of this encounter Visit Diagnoses Diagnosis Headache disorder Headache documented in this encounter Care Teams Tour Escort Relationship Specialty Start Date End Date Akiko Mendoza MD [address] [place] [id number] PCP - General Internal Medicine 06/24/18 documented as of this encounter
--- OUTSIDE RECORDS SUMMARY | 2025-09-04 12:21 | XMS_ITS | Patient Health Record ---
Author Organization [facility] Address [address] [place] [address] Care Team Providers Care Table Cover Folder Name Role Phone Akiko Mendoza M.D. Primary Care Provider Unavail able Carolian Taborhal Unavailable [phone] Allergies Allergen (clinical drug ingredient) Drug/Non Drug Allergy documented on EMR Reaction Allergy Type Onset Date Status sodium pentothal (uncoded) Unknown Allergy Active Reason For Referral No Information Medications Medication SIG (Take, Route, Frequency, Duration) Notes Start Date End Date Status Azelastine HCl 137 MCG/SPRAY 1 puff in e ach nostril Nasally Twice a day for 90 days Active Flaxseed Oil 1000 MG as directed Orally Once a day Active Folic Acid Xtra 400 mcg 1 tablet Orally Once a day for 30 day(s) Active Polyeth Glyc-Propylene Glyc Active Calcium 600 mg as directed Orally O nce a day Active Nadolol 40 MG 1 tablet Orally Once a day for 30 day(s) Active Ezetimibe 10 MG 1 tablet Orally Once a day Active Meclizine HCl 12.5 MG 2 tablets as neede d Orally Once a day Active Multivitamins as directed Orally O nce a day Active DULoxetine HCl 60 MG 1 capsule Orally On ce a day for 30 day(s) Active B Complex as directed Orally O nce a day Active Montelukast Sodium 10 MG 1 tablet Orally Once a day for 30 day(s) Active Quinapril-hydroCHLOROthiazid e 10-12.5 MG 1 tablet Orally Once a day for 30 day(s) Active Vitamin D3 1000 UNIT 1 capsule Orally On ce a day Active Problems Problem Type SNOMED Code ICD Code Onset Dates Problem Status W/U Status Risk Notes Problem 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 (82623906) LEE Lung Disease (031.0) Active confirmed Problem Bronchiectasis (08930388) Bronchiectasis (494.1) Active confirmed Problem Cough (21382116) Cough (786.2) Active confirmed Problem Plain X-ray of chest abnormal (finding) (1060460764) Abnormal Chest X-Ray (793.10) Active confirmed Problem Cough (58815105) Cough (R05) Active confirmed Problem 74199118315970 Acute bronchospasm (J98.01) Active confirmed Problem Bronchiectasis (74670727) Bronchiectasis (J47.9) Active confirmed Problem 78323933 Anxiety (F41.9) Active confirmed Problem 866799679 Dyspnea (R06.00) Active confirmed Problem 92502389 Allergic rhinitis, unspecified seasonality, unspecified trigger (J30.9) Active confirmed Problem Infection caused by Mycobacterium avium-intracellul are group (805534773) MAIC (mycobacterium avium-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) Active confirmed Problem 938081894 Abnormal CXR (R93.89) Active confirmed Plan Of Treatment Pending Test Test Name Order Date SPIROMETRY 07/04/2020 AA Neptune Pre/Post 02/03/2017 AA Neptune Pre/Post 01/02/2014 AA Aristides Pre/Post 07/30/2015 AA Neptune Pre/Post 12/25/2017 AA Neptune Pre/Post 06/20/2019 AA Neptune Pre/Post 04/21/2016 AA Aristides Pre/Post 06/25/2018 AA Neptune Pre/Post 02/03/2014 AA Neptune Pre/Post 05/13/2016 AA Neptune Pre/Post 12/22/2012 AA Aristides Pre/Post 04/03/2014 AA Aritsides Pre/Post 10/14/2019 AA Neptune Pre/Post 08/05/2016 AA Neptune Pre/Post 06/22/2013 AA Neptune Pre/Post 12/20/2018 AA Aristides Pre/Post 11/01/2014 FENO_ 10/14/2019 FENO_ 12/20/2018 FENO_ 07/04/2020 FENO_ 06/20/2019 FENO_ 06/25/2018 PFT Order 01/31/2014 Future Test Test Name Order Date CAT scan chest without contrast 12/15/19 14 CAT scan chest without contrast 03/21/20 14 CAT scan chest without contrast 12/14/19 15 CAT scan chest without contrast 07/20/20 15 CAT scan chest without contrast 04/07/20 16 CAT scan chest without contrast 07/14/20 16 PFT Order 02/03/2017 Allergy Skin testing 10/19/2019 Insurance Providers Payer Name Payer Address Payer Phone Subscriber Number Group Number Insured Name Patient Relationship to Insured Coverage Start Date Coverage End Date [employer] [address] [place] [address] [id number] Homa Cortes Self - patient is the insured MEDICARE [employer] [address] [place] [phone] [id number] Homa Cortes Self - patient is the insured Medical (General) History Medical History History ICD Code LEE lung disease s/p treatment Bronchiectasis Hypertension Hypercholesterolemia IBS Tension headaches Second hand smoke exposure nephrolithiasis anxiety Surgical History Surgery Date(Month/Year) parathyroidectomy breast biopsy tubal ligation
--- OUTSIDE RECORDS SUMMARY | 2025-09-04 12:21 | XMS_ITS | Encounter Summary ---
Author Organization [facility] Address [address] [place] [address] Care Team Providers Care Medical Translator Name Role Phone Akiko Mendoza MD Primary Care Provider [phone] Reason for Visit * Reason Comments Medication Refill Encounter Details Date Type Department Care Team (Late st Contact Info) Description 10/03/2022 Refill [facility] [address] [place], [place] [phone] Akiko Mendoza MD [address] [place], [place] [phone] Hyponatremia [E87.1] Social History Tobacco Use Types [...] and Family Not on file 05/02/2022 Attends Congregational Services Not on file 05/02 Active Member [...] hyponatremia documented in this encounter Care Teams Medical Translator Relationship Specialty Start Date End Date Akiko Mendoza MD [address] [place] [address] PCP - General Internal Medicine 06/24/18 documented as of this encounter
--- OUTSIDE RECORDS SUMMARY | 2025-09-04 12:21 | XMS_ITS | Encounter Summary ---
Author Organization [facility] Address [address] [place] [address] Care Team Providers Care Mine Wirer Name Role Phone Akiko Mendoza MD Primary Care Provider [phone] Reason for Visit * Reason Comments Medication Refill Encounter Details Date Type Department Care Team (Late st Contact Info) Description 06/24/2022 Refill [facility] [address] [place], [place] [phone] Akiko Mendoza MD [address] [place], [place] [phone] Pure hypercholesterolemia [E78.00] Social History Tobacco Use Types Packs/Day Years [...] and Family Not on file 05/02/2022 Attends Zoroastrianism Services Not on file 05/02 Active Member [...] Date Recorded PHQ-2 Total Score 0 07/22/2021 Hunger Vital Sign Answer Date Recorded Within [...] as of this encounter Visit Diagnoses Diagnosis Pure hypercholesterolemia documented in this encounter Care Teams Mine Wirer Relationship Specialty Start Date End Date Akiko Mendoza MD [address] [place] [address] PCP - General Internal Medicine 06/24/18 documented as of this encounter
--- OUTSIDE RECORDS SUMMARY | 2025-09-04 12:21 | XMS_ITS | Patient Health Record ---
Author Organization [facility] Address [address] [facility] [address] [place] [address] Care Team Providers Care Transfer Operator Name Role Phone Radha Goins MD Primary Care Provider Bin Myles [phone] Allergies Allergen (clinical drug ingredient) Drug/Non Drug Allergy documented on EMR Reaction Allergy Type Onset Date Status sodium pentothal (uncoded) Unknown Allergy Active Reason For Referral No Information Medications Medication SIG (Take, Route, Frequency, Duration) Notes Start Date End Date Status Sertraline HCl Activ e LORazepam Active Meclizine HCl Active Ezetimibe Active Vitamin B Complex-C Active Polyethylene Glycol 3350 Active Multivitamin Adult A ctive Rbnelialyf-ZPEH-Utvompld Active Quinapril-hydroCHLOROthiazi de Active Calcium + D3 Active Nadolol Active Aspirin 81 Active Flaxseed Oil Max Str Active Vitamin D3 Active Folic Acid Active Social History Social History Drugs/Alcohol: Social Info Question Answer Notes Drugs Have you used drugs other than those for medical reasons in the past 12 months? No Alcohol Screen Did you have a drink containing alcohol in the past year? Yes How often did you have a drink containing alcohol in the past year? Monthly or less (1 point) Points 1 Interpretation Negative Additional Details Category Social Info Options Details Miscellaneous: Exercise: 3-4 times per week Plan Of Treatment No Information Insurance Providers Payer Name Payer Address Payer Phone Subscriber Number Group Number Insured Name Patient Relationship to Insured Coverage Start Date Coverage End Date Medicare [employer] [address] [facility] [id number] Homa Cortes Self - patient is the insured 8 [facility] [address] [place], [place] [phone] [id number] Homa Cortes Self - patient is the insured 8 Medical (General) History Medical History History ICD Code FUNCTIONAL BOWEL DISEASE Gastroesophageal Reflux Disease HYPERTENSION (401.9) Migraine Headache Sinusitis Surgical History Surgery Date(Month/Year) Breast Biopsy Parathyroidectomy Tubal Ligation
--- OUTSIDE RECORDS SUMMARY | 2025-09-04 12:21 | XMS_ITS | Encounter Summary ---
Author Organization [facility] Address [address] [place] [address] Care Team Providers Care Picture Booker Name Role Phone Akiko Mendoza MD Primary Care Provider [phone] Reason for Visit * Reason Comments Medication Refill Encounter Details Date Type Department Care Team (Late st Contact Info) Description 04/24/2021 Refill [facility] [address] [place] [address] [phone] Akiko Mendoza MD [address] [place] [address] [phone] Social History Tobacco Use Types Packs/Day Years [...] on filedocumented in this encounter Care Teams Picture Booker Relationship Specialty Start Date End Date Akiko Mendoza MD [address] [place] [address] [phone] PCP - General Internal Medicine 06/24/18 documented as of this encounter
--- OUTSIDE RECORDS SUMMARY | 2025-09-04 12:21 | XMS_ITS | Encounter Summary ---
Author Organization [facility] Address [address] [place] [address] Care Team Providers Care Approver Name Role Phone Akiko Mendoza MD Primary Care Provider [phone] Reason for Visit * Reason Comments Medication Refill Encounter Details Date Type Department Care Team (Late st Contact Info) Description 05/15/2021 Refill [facility] [address] [place] [address] [phone] Akiko Mendoza MD [address] [place] [address] [phone] Social History Tobacco Use Types Packs/Day Years [...] on filedocumented in this encounter Care Teams Approver Relationship Specialty Start Date End Date Akiko Mendoza MD [address] [place] [address] [phone] PCP - General Internal Medicine 06/24/18 documented as of this encounter
--- OUTSIDE RECORDS SUMMARY | 2025-09-04 12:21 | XMS_ITS | Encounter Summary ---
Author Organization [facility] Address [address] [place] [address] Care Team Providers Care Intercell Connector Placer Name Role Phone Akiko Mendoza MD Primary Care Provider Reason for Visit * Reason Comments Medication Refill Encounter Details Date Type Department Care Team (Late st Contact Info) Description 06/10/2021 Refill [facility] [address] [place] [address] [phone] Akiko Mendoza MD [address] [place] [address] [phone] Social History Tobacco Use Types Packs/Day Years [...] on filedocumented in this encounter Care Teams Intercell Connector Placer Relationship Specialty Start Date End Date Akiko Mendoza MD [address] [place] [address] [phone] PCP - General Internal Medicine 06/24/18 documented as of this encounter
--- OUTSIDE RECORDS SUMMARY | 2025-09-04 12:21 | XMS_ITS | Clinical Summary ---
Author Organization [facility] Address [address] [place] [address] Care Team Providers Care Stenotype Machine Operator Name Role Phone Akiko Mendoza MD Primary Care Provid er Allergies Active Allergy Reactions Criticality Noted Date Comments Thiopental 01/14/2021 Medications * This document contains information received from the source organization and may not represent a complete record from that organization. quinapril 20 MG tablet Take 20 mg by mouth daily. Active busPIRone 5 MG tablet Take 5 mg by mouth 2 times a day. Active loratadine 10 mg tablet Take 10 mg by mouth daily. Active nadolol 20 MG tablet Take 20 mg by mouth daily. Active DULoxetine [address] capsule Take 60 mg by mouth daily. Active DULoxetine [address] capsule Take 30 mg by mouth daily. Active potassium chloride 20 MEQ ER tablet Take 20 mEq by mouth daily. Active magnesium gluconate 500 (27 Mg) MG tablet Take 500 mg by mouth daily. Active melatonin 3 MG tablet Take 3 mg by mouth daily at 8 pm. Active risperiDONE 0.5 MG tablet Take 0.5 mg by mouth daily at bedtime. Active Active Problems Problem Noted Date Diagnosed Date MDD (major depressive disord er), recurrent, severe, with psychosis (CMS-HCC + [facility]-HCC) 01/16/2021 Family History Medical History Relation Comments Cancer Brother lung cancer Alcoholism Father Cancer Father lung cancer Cardiovascular Disease Mother Relation Status Comments Brother (Age 68) Father (Age 76) Mother (Age 85) Social History Tobacco Use Types Packs/Day Years Used Date Smoking Tobacco: Never Smokeless Tobacco: Never Alcohol Use Standard Drinks/Week Comments Never 0 (1 standard drink = 0.6 oz pur e alcohol) Comments No Sex and Gender Information Value Date Recorded Sex Assigned at Not on file Legal Sex Female 3:27 PM EDT Gender Identity Not on file Sexual Orientation Not on file Last Filed Vital Signs Vital Sign Reading Time Taken Comments Blood Pressure 102/70 01/16/2021 9:48 AM EDT Pulse 72 01/16/2021 9:48 AM EDT Temperature 37.3 C (99.2 F) 01/16/2021 9:48 AM EDT Respiratory Rate - - Oxygen Saturation - - Inhaled Oxygen Concentration - - Weight 57.6 kg (127 lb) 01/16/2021 9:48 AM EDT Height 170.2 cm (5' 7) 01/16/2021 9:48 AM EDT Body Mass Index 19.89 01/16/2021 9:48 AM EDT Plan of Treatment Not on file Insurance [facility] MEDICARE [facility] Address: [facility] [id number] [place] [phone] Care Teams Stenotype Machine Operator Relationship Specialty Start Date End Date Akiko Mendoza MD [address] [place] [address] PCP - General Family Medicine 01/16/21
--- OUTSIDE RECORDS SUMMARY | 2025-09-04 12:21 | XMS_ITS | Encounter Summary ---
Author Organization [facility] Address [address] [place] [address] Care Team Providers Care Tool Lapper Hand Name Role Phone Akiko Mendoza MD Primary Care Provider [phone] Reason for Visit * Reason Comments Medication Refill Encounter Details Date Type Department Care Team (Late st Contact Info) Description 09/03/2021 Refill [facility] [address] [place] [address] [phone] Akiko Mendoza MD [address] [place] [address] [phone] Social History Tobacco Use Types Packs/Day Years [...] on filedocumented in this encounter Care Teams Tool Lapper Hand Relationship Specialty Start Date End Date Akiko Mendoza MD [address] [place] [address] [phone] PCP - General Internal Medicine 06/24/18 documented as of this encounter
[2025-09-04 12:41] VITALS: BP 159/83; PULSE 73; RESP 18; O2SAT 100
== END 2025-09-04 12:44 | disposition home or self-care (01) ==
PROVIDERS: Emergency Provider Physician Assistant
DX: S02.2XXA Fracture of nasal bones, initial encounter for closed fracture (principal); M47.812 Spondylosis without myelopathy or radiculopathy, cervical region; W01.0XXA Fall on same level from slipping, tripping and stumbling without subsequent striking against object, initial encounter
CPT/HCPCS: 70450; 70486; 72125; 99284